=== PATIENT | male | born 2000 | race Two or more races ===

== ENCOUNTER 2021-07-10 14:01 | Emergency (ER) | payer OTHER ==
[~2021-07-10] VITALS: Ht 170.2 cm; Wt 59.0 kg
[2021-07-10] MEDS ORDERED: ZITHROMAX TRI-500 MG PO (16:44)
== END 2021-07-10 16:55 | disposition home or self-care (01) ==
LOC: ER 14:01 → EMR PED 14:07
DX: J02.9 Acute pharyngitis, unspecified (principal); R51.9 Headache, unspecified; R50.9 Fever, unspecified; Z03.818 Encounter for observation for suspected exposure to other biological agents ruled out

== ENCOUNTER 2022-01-02 18:10 | Emergency (ER) | payer OTHER ==
[~2022-01-02] VITALS: Ht 170.2 cm; Wt 61.2 kg
[~2022-01-02 18:10] MED LIST: ZITHROMAX TRI-500 MG PO
== END 2022-01-02 21:55 | disposition home or self-care (01) ==
LOC: ER 18:10 → EMR PED 18:13
DX: L03.116 Cellulitis of left lower limb (principal); R50.9 Fever, unspecified